=== PATIENT | male | born 1965 | race Caucasian/White ===

== ENCOUNTER 2016-10-04 12:18 | Day surgery (SDC) | payer OTHER ==
[~2016-10-04] VITALS: Ht 170.2 cm; Wt 93.1 kg
[~2016-10-04 12:18] MED LIST: LOSA1TAB19 PO
[2016-10-04 13:53] VITALS: Ht 170.2 cm; Wt 93.1 kg
[2016-10-04 14:45] VITALS: BP 137/80; PULSE 63; RESP 21
[2016-10-04] MEDS ORDERED: LIDOCAINE 4% SOLUTION 50 ML BTL ONE (14:49)
[2016-10-04 15:16] VITALS: BP 124/74; PULSE 59; RESP 17
[2016-10-04] MEDS ORDERED: MIDAZOLAM 1 MG/ML 2 ML INJ ONE ×2 (15:18)
[2016-10-04] MEDS ORDERED: FENTAnyl 50 MCG/ML VIAL ONE (15:18)
[2016-10-04 15:40] VITALS: BP 138/104; PULSE 99; RESP 16
[2016-10-04 16:31] VITALS: BP 110/70; PULSE 54; RESP 18
--- NOTE | 2016-10-05 04:00 | GILP ---
DATE OF PROCEDURE: 10/04/2016 PREOPERATIVE DIAGNOSES: 1. Abdominal pain. 2. Gastroesophageal reflux disease. 3. Gastroesophageal reflux symptoms. 4. Past history of H. pylori infections. PROCEDURE DONE: Esophagogastroduodenoscopy and biopsy. POSTOPERATIVE DIAGNOSES: 1. Small sliding hernia in the stomach. 2. There were raised whitish areas that looked like intestinal metaplasia. Biopsies were done in t he fundus and body and antrum. DESCRIPTION OF PROCEDURE: The patient was put in left lateral decubitus after obtaining informed co nsent. He was sedated and monitored on oximetry, EKG, blood pressure. Posterior pharynx anesthetiz ed with 4% Xylocaine; 3 mg IV Versed and 75 mcg of fentanyl given. Very carefully advanced Olympus video upper endoscope into the esophagus, stomach, and duodenum. Es ophagus in its entire length is normal. Small hiatus hernia noted. No esophagitis noted. Irregula r Z line but no evidence of any erosions. In the stomach, including the fundus, by retroflexion and antegrade exam of the body and antrum showed some whitish raised area. These looked like intestina l metaplasia with previous H. pylori probably some changes in the membrane. Random biopsy was done throughout the fundus, body, and antrum and sent to histopathology. The duodenal bulb was easily en tered through the pylorus. The pylorus is normal. Duodenal bulb and first and second part of the d uodenum normal. Upon removal of scope, the patient had no complication. PLAN: Will be to await for biopsy report, follow up as outpatient, and depending on the findings, w e will treat him. Meanwhile, he has no ulcer disease to explain his abdominal pain. If it continue s, consider further workup including ultrasound or CAT scan. Dictated By: MEDHAT WEINSTEIN/LYN Conf#: [id number] DID#: [id number] CC: Allan Bustillos MD; MEDHAT GUTIERREZ M.D.;*EndCC*
== END 2016-10-04 16:29 | disposition home or self-care (01) ==
LOC: GIL 12:18
PROVIDERS: ATTEND Internal Medicine
DX: K21.9 Gastro-esophageal reflux disease without esophagitis (principal); I10 Essential (primary) hypertension; R10.13 Epigastric pain; Z86.19 Personal history of other infectious and parasitic diseases; K44.9 Diaphragmatic hernia without obstruction or gangrene
CPT/HCPCS: 43239; 88305; 88312; J2250; J3010; Z7610

== ENCOUNTER 2017-04-11 12:53 | Day surgery (SDC) | payer OTHER ==
[~2017-04-11] VITALS: Ht 170.2 cm; Wt 93.2 kg
[2017-04-11] MEDS ORDERED: TAMSULOSIN PO (14:23)
[2017-04-11] MEDS ORDERED: DOXYCYCLINE PO (14:23)
[2017-04-11] MEDS ORDERED: CARAFATE PO (14:23)
[2017-04-11] MEDS ORDERED: GABAPENTIN PO (14:23)
[2017-04-11 14:28] VITALS: Ht 170.2 cm; Wt 93.2 kg
[2017-04-11] MEDS ORDERED: LIDOCAINE 4% SOLUTION 50 ML BTL ONE (14:54)
--- NOTE | 2017-04-11 15:07 | OPPN ---
Date/Time of Note Date/Time of Note DATE: 04/11/17 TIME: 15:05 Operative Report Preoperative Diagnosis abdominal pain Postoperative Diagnosis diffuse gastritis Operation/Procedure Performed EGD BX Surgeon see signature line certified nursing assistant NONE Anesthesia: moderate sedation (VERSED 3MG/ FENTANYL 75 MCG/ MODERATE SEDATION 9 MTS) Estimated blood loss: none Transfusion Required none Specimen RANDOM GASTRIC BIOPSY Grafts/Implants none Complications none MEDHAT GUTIERREZ MD Apr 11, 2017 15:07
[2017-04-11] MEDS ORDERED: MIDAZOLAM 1 MG/ML 2 ML INJ ONE ×2 (15:28)
[2017-04-11] MEDS ORDERED: FENTAnyl 50 MCG/ML VIAL ONE (15:28)
[2017-04-11 15:43] VITALS: BP 103/56; RESP 14
--- NOTE | 2017-04-12 07:21 | GILP ---
DATE OF PROCEDURE: PREOPERATIVE DIAGNOSIS: Continued epigastric pain in spite of treatment for his H. pylori and PPIs. Patient was brought for upper endoscopy. PROCEDURE DONE: Esophagogastroduodenoscopy and biopsy randomly in the stomach. POSTOPERATIVE DIAGNOSES: Diffuse gastritis, normal esophagus, normal duodenum. DESCRIPTION OF PROCEDURE: The patient was put in left lateral decubitus after obtaining informed co nsent. Posterior pharynx anesthetized with 4% Xylocaine, very carefully advanced an Olympus video u pper endoscope after sedation with 3 mg IV Versed, 75 mcg of fentanyl. The scope was advanced easil y into the esophagus, stomach and duodenum. Esophagus in its entire length is normal, GE junction a nd the transitional mucosa has a danuta pattern and examination of the stomach including the fundus , body and antrum showed gastritis, quite diffuse. Some bile was noted. Photography done. Random biopsies done because of past history of H. pylori and gastritis. The duodenum easily entered up to third part is normal. The patient had no complication upon removal of the scope. Plan will be to continue PPI and await for biopsy report, if positive for Helicobacter pylori, we will treat him. Dictated By: MEDHAT DAVISON Conf#: [id number] DID#: [id number]
== END 2017-04-11 16:20 | disposition home or self-care (01) ==
LOC: GIL 12:53
PROVIDERS: ATTEND Internal Medicine
DX: K29.70 Gastritis, unspecified, without bleeding (principal); I10 Essential (primary) hypertension
CPT/HCPCS: 43239; 88305; J2250; J3010; Z7610

== ENCOUNTER 2018-05-24 08:42 | Day surgery (SDC) | payer OTHER ==
[~2018-05-24] VITALS: Ht 170.2 cm; Wt 90.4 kg
[~2018-05-24 08:42] MED LIST changes: +CARAFATE PO; +DOXYCYCLINE PO; +GABAPENTIN PO; -LOSA1TAB19 PO; +LOSA1TAB22 PO; +TAMSULOSIN PO
[2018-05-24 10:17] VITALS: Ht 170.2 cm; Wt 90.4 kg
[2018-05-24 10:46] VITALS: BP 118/75; PULSE 58; RESP 24
[2018-05-24] MEDS ORDERED: FAMO40TA5 PO (10:49)
[2018-05-24] MEDS ORDERED: ALFU10TA2 PO (10:49)
[2018-05-24] MEDS ORDERED: HYDR25TA6 PO (10:49)
[2018-05-24] MEDS ORDERED: MIRA50TA PO (10:49)
[2018-05-24] MEDS ORDERED: LIDOCAINE 4% SOLUTION 50 ML BTL ONE (11:11)
[2018-05-24] MEDS ORDERED: MIDAZOLAM 1 MG/ML 2 ML INJ ONE ×2 (11:57)
[2018-05-24] MEDS ORDERED: FENTAnyl 50 MCG/ML VIAL ONE (11:57)
[2018-05-24 11:58] VITALS: BP 116/73; PULSE 61; RESP 12
== END 2018-05-25 08:59 | disposition home or self-care (01) ==
LOC: GIL 08:42
PROVIDERS: ATTEND Internal Medicine Gastroenterology
DX: K21.0 Gastro-esophageal reflux disease with esophagitis (principal); K31.7 Polyp of stomach and duodenum; K29.00 Acute gastritis without bleeding; I10 Essential (primary) hypertension
CPT/HCPCS: 43239; 88305; 88312; 88313; J2250; J3010; Z7610